=== PATIENT | female | born 1965 | race Caucasian/White ===

== ENCOUNTER → 2019-02-12 | Day surgery (SDC) | payer BC ==
[~2019-02-12] MED LIST: APRE30TA2 PO; IV RINGERS,LACTATED 1000ML 1,000 ML IV ONE; IV RINGERS,LACTATED 1000ML 1,000 ML IV SCH; LIDOCAINE 2% PF 5 ML VIAL. ONE; LORA1TAB47 PO; PROPOFOL 60 ML IV ONE; VALS1TAB22 PO
[2019-02-12 11:40] VITALS: BP 145/83
--- NOTE | 2019-02-12 11:43 | PREOP HP ---
DATE OF SERVICE: DATE OF PROCEDURE: 02/12/2019. REQUESTING PHYSICIAN: Charo Roe MD PRIMARY CARE PHYSICIAN: Charo Roe MD REASON FOR PROCEDURE: History of reflux and colon polyps. HISTORY OF PRESENT ILLNESS: This is a 53-year-old female with a history of multiple colon polyps on colonoscopy last year as well as reflux. PAST MEDICAL HISTORY: 1. Colon polyps. 2. Endometriosis. FAMILY MEDICAL HISTORY: Significant for liver disease. SOCIAL HISTORY: She is a social drinker, but denies tobacco or IV drug abuse. MEDICATIONS: MAR reviewed. REVIEW OF SYSTEMS: Thirteen-point review of systems was done and is positive as per HPI and otherwise negative. PHYSICAL EXAMINATION: VITAL SIGNS: She is afebrile and vital signs are stable. GENERAL: She is a well-developed, well-nourished female, in no apparent distress. HEENT: Oropharynx is clear. CARDIOVASCULAR: S1, S2. LUNGS: Clear. ABDOMEN: Normoactive bowel sounds, soft, nontender, nondistended. EXTREMITIES: No edema. NEUROLOGIC: Awake, alert, and oriented x 3. ASSESSMENT AND PLAN: 1. Heartburn. 2. History of colon polyps. The risks and benefits of both the upper and lower endoscopy were explained and she has agreed to proceed. JAMES MONTIEL MD DR: DAYA/shayan JOB#: [id number] / [id number]
--- NOTE | 2019-02-13 18:06 | PATHOLOGY ---
[facility] Accession Number: [id number] . 01 Material submitted: . PART A: small bowel - SMALL BOWEL BIOPSY PART B: stomach - GASTRIC ANTRUM AND BODY BIOPSY. Modifiers: body PART C: esophagus - DISTAL ESOPHAGUS BIOPSY. Modifiers: distal PART D: colon - DESCENDING COLON POLYP. Modifiers: descending PART E: colon - SIGMOID POLYP. Modifiers: sigmoid PART F: rectum - RECTAL POLYP . 01 Clinical history: . GERD, Hx polyps, CRCS . 02 Diagnosis: A. Small bowel biopsies: - No significant pathologic abnormalities. . B. Gastric biopsies, gastric antrum and gastric body: - Chronic gastritis, mild to moderate. . C. Esophageal biopsies, distal esophagus: - Segments of hyperplastic squamous esophageal mucosa with focal contiguous gastric mucosa showing chronic inflammation consistent with reflux esophagitis. . D. Colon biopsy, descending colon polyp: - Hyperplastic polyp. . E. Colon biopsy, sigmoid polyp: - Hyperplastic polyp. . F. Colorectal biopsy, rectal polyp: - Hyperplastic polyp. . (JPM:annie; 02/13/2019) MBR 02/13/2019 1048 Local . 02 Comment: Sections of the small bowel biopsy reveal segments of duodenal mucosa. Where best oriented, the mucosal villi show no sprue-like changes or significant inflammatory changes. . Sections of the gastric biopsy reveal segments of gastric antral and gastric body mucosa. The gastric body mucosa shows congestion and mild chronic inflammation. The gastric antral mucosa shows congestion and mild to moderate chronic inflammation. A properly controlled immunoperoxidase stain for Helicobacter is negative for Helicobacter organisms. . Sections of the distal esophageal biopsy reveal segments of hyperplastic squamous esophageal mucosa with focal contiguous gastric mucosa showing chronic inflammation. The findings are consistent with reflux esophagitis. There is no evidence of Clayton's change, dysplasia, or malignancy. . Sections of the descending colon, sigmoid colon, and rectal biopsies appear similar and reveal hyperplastic polyps. There are no adenomatous changes or evidence of malignancy. . (JPM:rug repairer; 02/13/2019) . Special stain performed: Immunoperoxidase stain for Helicobacter on B1. . 02 Electronically signed: . Cordell Allan MD, Pathologist NPI- [id number] . 01 Gross description: . A. Received in formalin labeled "Jhonathan, Annabelle, small bowel BX," are 3 segments of piña soft tissue measuring 1.0 x 0.6 x 0.3 cm in aggregate dimensions and ranging from 0.4 to 0.6 cm in maximum dimension. The specimen is submitted entirely in cassette A1. . B. Received in formalin labeled "Jhonathan, Annabelle, gastric antrum and body BX," are 4 segments of piña soft tissue measuring 1.0 x 0.5 x 0.2 cm in aggregate dimensions and ranging from 0.4 to 0.5 cm in maximum dimension. The specimen is submitted entirely in cassette B1. . C. Received in formalin labeled "Jhonathan, Annabelle, distal esophagus BX," are multiple segments of piña soft tissue measuring 0.8 x 0.4 x 0.1 cm in aggregate dimensions. The specimen is filtered and entirely submitted in cassette C1. . D. Received in formalin labeled "Jhonathan, Annabelle, descending colon polyp," is a single segment of piña soft tissue measuring 0.7 cm in maximum dimension. The specimen is entirely submitted in cassette D1. . E. Received in formalin labeled "Jhonathan, Annabelle, sigmoid polyp," is a single segment of piña soft tissue measuring 0.4 cm in maximum dimension. The specimen is entirely submitted in cassette E1. . F. Received in formalin labeled "Jhonathan, Annabelle, rectal polyp," is a single segment of piña soft tissue measuring 0.5 cm in maximum dimension. The specimen is entirely submitted in cassette F1. (TSD; 02/12/2019) TOB/TOB 02/13/2019 1037 Local . 02 Pathologist provided ICD-10: K29.50, K20.9, K63.5, K62.1 . 02 CPT . 173361, [id number], [id number], [id number], [id number], [id number], [id number] Specimen Comment: A courtesy copy of this report has been sent to [phone], [phone] Specimen Comment: [id number] Specimen Comment: Report sent to and Performed at: [address] [facility], [place] [id number] MD Rodrigo Antunez MD Phone: [phone] Performed at: [facility] [address] [place], [place] [id number] MD Cordell Allan MD Phone: [phone]
== END ==
LOC: ENDOS 09:04
PROVIDERS: ATTEND Internal Medicine Gastroenterology
DX: Z12.11 Encounter for screening for malignant neoplasm of colon (principal); K29.50 Unspecified chronic gastritis without bleeding; K21.0 Gastro-esophageal reflux disease with esophagitis; K57.30 Diverticulosis of large intestine without perforation or abscess without bleeding; K64.0 First degree hemorrhoids; Z86.010 Personal history of colon polyps; Z72.89 Other problems related to lifestyle
CPT/HCPCS: 43239; 45380; 88305; 88342; J2001; J2704